=== PATIENT | female | born 1985 | race Caucasian/White ===

== ENCOUNTER 2017-06-11 22:43 | Emergency (ER) | payer OTHER | END 2017-06-12 03:35 | disposition home or self-care (01) | LOC: FTE 22:43 | DX: J02.9 Acute pharyngitis, unspecified (principal); J20.9 Acute bronchitis, unspecified; J45.909 Unspecified asthma, uncomplicated | CPT/HCPCS: 99284; Z7502 ==

== ENCOUNTER 2018-04-26 23:21 | Emergency (ER) | payer OTHER ==
[2018-04-27] MEDS: IPRATROPIUM (NEB) 0.5 MG/2.5 ML AMP NEB (01:14)
[2018-04-27] MEDS: ALBUTEROL 0.083% (NEB) 2.5 MG/3 ML AMP NEB (01:14)
[2018-04-27] MEDS: predniSONE 20 MG TAB PO (01:19)
== END 2018-04-27 02:24 | disposition home or self-care (01) ==
LOC: FTE 23:21
DX: J45.901 Unspecified asthma with (acute) exacerbation (principal)
CPT/HCPCS: 71045; 94664; 99283-25

== ENCOUNTER 2018-10-17 00:04 | Emergency (ER) | payer OTHER ==
[2018-10-17] MEDS: METHYLPREDNISOLONE 125 MG INJ IV (02:16)
[2018-10-17] MEDS: ALBUTEROL 0.5% (NEB) 2.5 MG/0.5 ML AMP INH (02:19)
== END 2018-10-17 05:33 | disposition home or self-care (01) ==
LOC: E/R 00:04
DX: J45.901 Unspecified asthma with (acute) exacerbation (principal)
CPT/HCPCS: 71045; 94644; 96374; 99284-25

== ENCOUNTER 2018-11-12 21:10 | Emergency (ER) | payer OTHER ==
[2018-11-12] MEDS: predniSONE 20 MG TAB PO (23:11)
[2018-11-12] MEDS: ALBUTEROL 0.083% (NEB) 2.5 MG/3 ML AMP NEB (23:21)
[2018-11-12] MEDS: IPRATROPIUM (NEB) 0.5 MG/2.5 ML AMP NEB (23:21)
== END 2018-11-13 00:14 | disposition home or self-care (01) ==
LOC: FTE 11-13 00:14
DX: J45.901 Unspecified asthma with (acute) exacerbation (principal)
CPT/HCPCS: 94664; 99283-25